=== PATIENT | female | born 1945 | race Caucasian/White ===

== ENCOUNTER 2018-03-23 06:51 | Day surgery (SDC) | payer MEDICARE, OTHER ==
[2018-03-23] MEDS ORDERED: CEFAZOLIN 1 GM INJ (07:00)
[2018-03-23] MEDS ORDERED: DEXTROSE 5%-LR 1,000 ML IV (08:30)
[2018-03-23] MEDS ORDERED: CEFAZOLIN 2 GM/50 ML (PMX) 50 ML IVPB (08:30)
[2018-03-23] MEDS ORDERED: MEPERIDINE 25 MG INJ IV (09:00)
[2018-03-23] MEDS ORDERED: DIPHENHYDRAMINE 50 MG INJ IV (09:00)
[2018-03-23] MEDS ORDERED: METOCLOPRAMIDE 10 MG INJ IV (09:00)
[2018-03-23] MEDS ORDERED: EPHEDrine SULFATE 50 MG/5 ML SYG IV (09:00)
[2018-03-23] MEDS ORDERED: LABETALOL HCL 20MG INJ IV (09:00)
[2018-03-23] MEDS ORDERED: hydrALAzine 20 MG INJ IV (09:00)
[2018-03-23] MEDS ORDERED: ONDANSETRON 4 MG INJ IV (09:00)
[2018-03-23] MEDS ORDERED: OXYCODONE/ACETAMINOPHEN (5/325) TAB PO ×2 (09:00)
[2018-03-23] MEDS ORDERED: FENTAnyl 50 MCG/ML VIAL IV ×3 (09:00)
[2018-03-23] MEDS ORDERED: MIDAZOLAM 1 MG/ML 2 ML INJ IV (09:00)
[2018-03-23] MEDS ORDERED: MEPERIDINE 100 MG INJ (09:38)
[2018-03-23] MEDS ORDERED: LIDOCAINE 2% (SDV) 5 ML INJ (09:38)
[2018-03-23] MEDS ORDERED: ONDANSETRON 4 MG INJ (09:38)
[2018-03-23] MEDS ORDERED: PROPOFOL 20 ML (09:38)
[2018-03-23] MEDS ORDERED: METOCLOPRAMIDE 10 MG INJ (09:38)
[2018-03-23] MEDS ORDERED: ATROPINE 1 MG/10 ML SYRINGE (10:16)
== END 2018-03-23 14:10 | disposition home or self-care (01) ==
LOC: SDS 06:51
DX: N84.0 Polyp of corpus uteri (principal); D25.9 Leiomyoma of uterus, unspecified; E11.9 Type 2 diabetes mellitus without complications; E03.9 Hypothyroidism, unspecified; E78.5 Hyperlipidemia, unspecified; I10 Essential (primary) hypertension
CPT/HCPCS: 58558; 82962; 88305